=== PATIENT | female | born 1980 | race African-American/Black ===

== ENCOUNTER 2021-03-07 13:25 | Emergency (ER) | payer MEDICAID ==
[~2021-03-07] VITALS: Ht 170.2 cm; Wt 84.0 kg
[2021-03-07 16:24] VITALS: BP 120/76
== END 2021-03-07 16:25 | disposition home or self-care (01) ==
LOC: ER 13:25
DX: S20.219A Contusion of unspecified front wall of thorax, initial encounter (principal); S60.512A Abrasion of left hand, initial encounter; V43.52XA Car driver injured in collision with other type car in traffic accident, initial encounter; V47.5XXA Car driver injured in collision with fixed or stationary object in traffic accident, initial encounter; Y93.89 Activity, other specified; Y92.488 Other paved roadways as the place of occurrence of the external cause
CPT/HCPCS: 71046; 73130; 93005; 99284

== ENCOUNTER 2022-10-17 13:34 | Emergency (ER) | payer MEDICAID ==
[~2022-10-17] VITALS: Ht 177.8 cm; Wt 51.0 kg
[2022-10-17 13:35] VITALS: TEMP 97.6; O2SAT 98
[2022-10-17 14:32] LABS: BASOPHILS % 0.7 % (0.0-2.0); EOSINOPHILS % 2.5 % (0.0-5.0); HEMATOCRIT. 38.2 % (36.0-48.0); HEMOGLOBIN. 12.6 g/dL (12.0-16.0); LYMPHOCYTES % 26.2 % (20.0-50.0); MEAN CORPUSCULAR HEMOGLOBIN 27.9 pg (28.0-32.0); MEAN CORPUSCULAR VOLUME 84.4 fL (81.0-99.0); MEAN PLATELET VOLUME 8.6 fl (7.4-10.4); MONOCYTES % 8.4 % (2.0-8.0); NEUTROPHILS % 62.2 % (40.0-76.0); PLATELET 265 x1000/uL (130-400); RED BLOOD CELL COUNT 4.52 mill/uL (4.2-5.4); RED CELL DISTRIBUTION WIDTH 15.6 % (11.6-14.6)
[2022-10-17 14:40] LABS: CHLORIDE 107 mEq/L (98-107)
[2022-10-17 14:51] LABS: CREATINE KINASE 143 IU/L (26-192); ETHANOL BLOOD < 10 mg/dL (-10); HCG SCREEN NEGATIVE
[2022-10-17 18:48] VITALS: BP 125/83; PULSE 71; RESP 20
== END 2022-10-17 18:53 | disposition home or self-care (01) ==
LOC: ER 14:19
DX: R07.89 Other chest pain (principal); Z98.890 Other specified postprocedural states
CPT/HCPCS: 36415; 71045; 80053; 80320; 82550; 83880; 84484; 84703; 85025; 93005; 99285; G0480

== ENCOUNTER 2023-11-29 21:10 | Emergency (ER) | payer MEDICAID ==
[~2023-11-29] VITALS: Ht 170.2 cm; Wt 101.0 kg
[2023-11-29 21:13] VITALS: BP 150/102; TEMP 98.7; O2SAT 100
[2023-11-29 21:17] VITALS: PULSE 85; RESP 18
[2023-11-29] MEDS ORDERED: MECLIZINE 25MG TABLET PO ONE (22:00)
[2023-11-29] MEDS: MECLIZINE 12.5MG TABLET PO NR (22:51)
[2023-11-29 23:28] LABS: BASOPHILS % 0.4 % (0.0-2.0); HEMATOCRIT. 39.8 % (36.0-48.0); HEMOGLOBIN. 12.9 g/dL (12.0-16.0); LYMPHOCYTES % 29.7 % (20.0-50.0); MEAN CORPUSCULAR HEMOGLOBIN 27.4 pg (28.0-32.0); MEAN CORPUSCULAR HGB CONC 32.3 g/dL (31.0-37.0); MEAN PLATELET VOLUME 8.6 fl (7.4-10.4); MONOCYTES % 5.7 % (2.0-8.0); NEUTROPHILS % 60.2 % (40.0-76.0); PLATELET 279 x1000/uL (130-400); RED BLOOD CELL COUNT 4.68 mill/uL (4.2-5.4); RED CELL DISTRIBUTION WIDTH 15.4 % (11.6-14.6); WHITE BLOOD COUNT 6.9 x1000/uL (4.5-11.0)
[2023-11-29 23:40] LABS: CHLORIDE 107 mEq/L (98-107); POTASSIUM 3.5 mEq/L (3.5-5.1); SODIUM 139 mEq/L (136-145)
[2023-11-29 23:41] LABS: CALCIUM 8.9 mg/dL (8.7-10.4); CARBON DIOXIDE 28 mEq/L (21-32)
[2023-11-29 23:46] LABS: CREATININE 0.7 mg/dL (0.6-1.0); GLUCOSE 98 mg/dL (70-105); UREA NITROGEN BLOOD 9 mg/dL (9-23)
[2023-11-29 23:49] LABS: HCG SCREEN NEGATIVE
[2023-11-29 23:57] LABS: ETHANOL BLOOD < 10 mg/dL (<10); TROPONIN I HIGH SENSITIVITY < 4 ng/L (3.0-34)
== END 2023-11-30 01:11 | disposition home or self-care (01) ==
LOC: ER 21:10
DX: R42 Dizziness and giddiness (principal); R51.9 Headache, unspecified; I10 Essential (primary) hypertension
CPT/HCPCS: 80048; 80320; 84703; 85025; 84484; 36415; 71045; 70450; 93005; 99285; J8597; G0480

== ENCOUNTER 2024-06-21 19:33 | Emergency (ER) | payer MEDICAID ==
[~2024-06-21] VITALS: Ht 170.2 cm; Wt 104.0 kg
[2024-06-21 20:43] VITALS: O2SAT 100
[2024-06-21] MEDS ORDERED: MECLIZINE 25MG TABLET PO ONE (22:15)
[2024-06-21 22:41] LABS: BASOPHILS % 0.9 % (0.0-2.0); EOSINOPHILS % 2.1 % (0.0-5.0); HEMATOCRIT. 42.1 % (36.0-48.0); HEMOGLOBIN. 13.8 g/dL (12.0-16.0); LYMPHOCYTES % 33.7 % (20.0-50.0); MEAN CORPUSCULAR HEMOGLOBIN 27.3 pg (28.0-32.0); MEAN CORPUSCULAR HGB CONC 32.8 g/dL (31.0-37.0); MEAN CORPUSCULAR VOLUME 83.3 fL (81.0-99.0); MONOCYTES % 6.4 % (2.0-8.0); NEUTROPHILS % 56.9 % (40.0-76.0); PLATELET 295 x1000/uL (130-400); RED BLOOD CELL COUNT 5.06 mill/uL (4.2-5.4); RED CELL DISTRIBUTION WIDTH 14.8 % (11.6-14.6); WHITE BLOOD COUNT 6.4 x1000/uL (4.5-11.0)
[2024-06-21 22:46] LABS: CHLORIDE 104 mEq/L (98-107); POTASSIUM 3.2 mEq/L (3.5-5.1); SODIUM 138 mEq/L (136-145)
[2024-06-21 22:47] LABS: CALCIUM 9.6 mg/dL (8.7-10.4); CARBON DIOXIDE 25 mEq/L (21-32)
[2024-06-21 22:52] LABS: CREATININE 0.7 mg/dL (0.6-1.0); GLUCOSE 101 mg/dL (70-105); UREA NITROGEN BLOOD 8 mg/dL (9-23)
[2024-06-21 22:53] LABS: HCG SCREEN NEGATIVE
[2024-06-21] MEDS: MECLIZINE 25MG TABLET PO NR (23:02)
[2024-06-21] MEDS: KETOROLAC 30MG/ML VIAL IM ONE (23:05)
[2024-06-22 00:09] LABS: TROPONIN I HIGH SENSITIVITY < 4 ng/L (3.0-34)
[2024-06-22] MEDS ORDERED: IBUP-2028 MT (00:21)
[2024-06-22] MEDS: POTASSIUM CHLORIDE 20MEQ/PACKET PO ONE (00:55)
[2024-06-22 01:14] VITALS: BP 131/79; PULSE 89; RESP 17; TEMP 36.8; O2SAT 100
== END 2024-06-22 01:15 | disposition home or self-care (01) ==
LOC: ER 19:33
DX: R51.9 Headache, unspecified (principal); R42 Dizziness and giddiness; I10 Essential (primary) hypertension; F10.90 Alcohol use, unspecified, uncomplicated; Y90.9 Presence of alcohol in blood, level not specified
CPT/HCPCS: 99284; 80048; 84703; 85025; 84484; 36415; 93005; 96372; J1885; J8597